=== PATIENT | female | born 1945 | race Caucasian/White ===

== ENCOUNTER → 2018-06-23 | Outpatient (CLI) | payer OTHER, MEDICAID | LOC: FIMAGING 06-03 15:16 | PROVIDERS: ATTEND Family Medicine | DX: Z12.31 Encounter for screening mammogram for malignant neoplasm of breast (principal) ==

== ENCOUNTER 2018-10-28 07:55 | Day surgery (SDC) | payer OTHER, MEDICAID ==
[2018-10-28] MEDS ORDERED: LR 1,000 ML IV ONE (08:10)
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
[2018-10-28] MEDS ORDERED: fentaNYL 100 MCG/2 ML INJ ONE (08:55)
[2018-10-28] MEDS ORDERED: PROPOFOL/EMULSION 500 MG/50 ML BOTTLE IV ONE (08:55)
--- NOTE | 2018-10-28 08:59 | PDGENHP ---
History & Physical Chief Complaint: dysphagia, colon screening History of Present Illness: dysphagia screening Pertinent Past, Social, Family History: tobacco - none. alcohol - none. Fhx - no colon cancer Relevant Physical Exam: A+Ox3. cta. S1S2. +BS soft, nt Cardiorespiratory Assessment: class II
[2018-10-28] MEDS ORDERED: NALOXONE HCL 0.4 MG/ML INJ IVP PRN (09:53)
--- NOTE | 2018-10-28 10:02 | POSTANESTH ---
Post Anesthetic Evaluation Cardiovascular Status: Normal, Stable Respiratory Status: Normal, Stable Level of Consciousness/Mental Status: Can Participate in Eval Pain Control: Adequate, Prn Tx Ordered Nausea/Vomiting Control: Adequate, Prn Tx Ordered Complications Possibly Related to Anesthesia: None Noted
[2018-10-28 10:38] VITALS: BP 156/80
--- NOTE | 2018-10-28 10:43 | GIREPORT ---
[facility] - Endoscopy Department Patient Name: Deirdre Pavon Procedure Date: 10/28/2018 8:27 AM Patient Type: Outpatient Attending MD/ ER Physician: Kai Reese MD Procedure: Colonoscopy Indications: Screening for colorectal malignant neoplasm Providers: Kai Reese MD Referring MD: Gilberto Erickson MD Medicines: Propofol per Anesthesia = IV general with spont resps Complications: No immediate complications. Estimated blood loss: Minimal. Description of Procedure: After obtaining informed consent, the scope was passed under direct vis ion. Throughout the procedure, the patient's blood pressure, pulse, and oxyg en saturations were monitored continuously. The Colonoscope with irrigatio n channel was introduced through the anus and advanced to the terminal il eum, with identification of the appendiceal orifice and IC valve. The colono scopy was performed without difficulty. The patient tolerated the procedure w ell. The quality of the bowel preparation was good. Findings: The digital rectal exam was normal. The terminal ileum appeared normal. A 23 mm polyp was found in the proximal ascending colon. The polyp was sessile. The polyp was removed with a piecemeal technique using a cold snare. Resection and retrieval were complete. Area was tattooed with an injection of 3 mL of Anna ink. Estimated blood loss was minimal. A 9 mm polyp was found in the rectum. The polyp was semi-pedunculated. The polyp was removed with a hot snare. Resection and retrieval were comple te. Estimated blood loss: none. The exam was otherwise without abnormality. Estimated Blood Loss: Estimated blood loss was minimal. Post Op Diagnosis: - The examined portion of the ileum was normal. - One 23 mm polyp in the proximal ascending colon, removed piecemeal us ing a cold snare. Resected and retrieved. Tattooed. - One 9 mm polyp in the rectum, removed with a hot snare. Resected and retrieved. - The examination was otherwise normal. Recommendation: - Await pathology results. - My office will call with the pathology result with 5-7 days. If you h ave not heard from my office by 12-14, do not assume the pathology is olivia l, please call [phone] to get the pathology results. - Repeat colonoscopy in 1 year for surveillance after piecemeal polypec elena. - Resume previous diet. - Patient has a contact number available for emergencies. The signs and symptoms of potential delayed complications were discussed with the pat ient. Return to normal activities tomorrow. Written discharge instructions we re provided to the patient. - Continue present medications. - Avoid Aspirin and NSAIDs for 7-10 days. - See EGD for other recommendations - Discharge patient to home (ambulatory). - Return to primary care physician as previously scheduled. - Thank you for allowing me to help in your patient's care. Do not hesi kee to call with any questions. Attending Participation: I personally performed the entire procedure. Mary Ann Coley M.D Kai Reese MD 10/28/2018 10:43:21 AM This report has been signed electronicallyMattteresa Reese MD Number of Addenda: 0 Note Initiated On: 10/28/2018 8:27 AM Total Procedure Duration Time 0 hours 23 minutes 15 seconds [email or web address]
--- NOTE | 2018-10-28 10:49 | GIREPORT ---
[facility] Surgical [facility] - Endoscopy Department Patient Name: Deirdre Pavon Procedure Date: 10/28/2018 8:15 AM Patient Type: Outpatient Attending MD/ ER Physician: Kai Reese MD Procedure: Upper GI endoscopy Indications: Dysphagia Providers: Kai Reese MD Referring MD: Gilberto Erickson MD Medicines: Propofol per Anesthesia = IV general with spont resps Complications: No immediate complications. Estimated blood loss: Minimal. Description of Procedure: After obtaining informed consent, the endoscope was passed under direct vision. Throughout the procedure, the patient's blood pressure, pulse, and oxygen saturations were monitored continuously. The Endoscope was intro duced through the mouth, and advanced to the third part of duodenum. The uppe r GI endoscopy was accomplished without difficulty. The patient tolerated th e procedure well. Findings: The upper third of the esophagus was normal. Biopsies were obtained fro m the proximal and distal esophagus with cold forceps for histology of suspec jacoby eosinophilic esophagitis. Estimated blood loss was minimal. Mucosal changes including longitudinal furrows and white plaques were f ound in the lower third of the esophagus. Biopsies were obtained from the proximal and distal esophagus with cold forceps for histology of suspec jacoby eosinophilic esophagitis. Estimated blood loss was minimal. One benign-appearing, intrinsic mild stenosis was found at the gastroesophageal junction. The stenosis was traversed. A TTS dilator wa s passed through the scope. Dilation with an 18-19-20 mm x 5.5 cm CRE bal loon dilator was performed to 20 mm. The dilation site was examined and show ed complete resolution of luminal narrowing. Estimated blood loss was mini mal. A hiatal hernia was present. Scattered moderate inflammation characterized by congestion (edema), erosions, erythema and friability was found in the gastric antrum. Biop sies were taken with a cold forceps for histology. Estimated blood loss was minimal. The examined duodenum was normal. The exam was otherwise without abnormality. Estimated Blood Loss: Estimated blood loss was minimal. Post Op Diagnosis: - Normal upper third of esophagus. Biopsied. - Esophageal mucosal changes suspicious for eosinophilic esophagitis. Biopsied. - Benign-appearing esophageal stenosis. Dilated. - Hiatal hernia. - Gastritis. Biopsied. - Normal examined duodenum. - The examination was otherwise normal. Recommendation: - Await pathology results. - My office will call with the pathology result with 5-7 days. If you h ave not heard from my office by 05-21, do not assume the pathology is olivia l, please call [phone] to get the pathology results. - Follow an antireflux regimen. - Use Protonix (pantoprazole) 40 mg PO daily for 2 months. Take 30-60 minutes before breakfast. 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 - Return to GI clinic in 3 months. - Return to primary care physician as previously scheduled. - Perform a colonoscopy today. - Thank you for allowing me to help in your patient's care. Do not hesi kee to call with any questions. Attending Participation: I personally performed the entire procedure. Mary Ann Coley M.D Kai Reese MD 10/28/2018 10:48:29 AM This report has been signed electronicallyMattteresa Reese MD Number of Addenda: 0 Note Initiated On: 10/28/2018 8:15 AM [email or web address]
== END 2018-10-28 11:00 | disposition home or self-care (01) ==
LOC: FSGY 07:55
PROVIDERS: ATTEND Internal Medicine Gastroenterology
DX: Z12.11 Encounter for screening for malignant neoplasm of colon (principal); R13.10 Dysphagia, unspecified; K29.70 Gastritis, unspecified, without bleeding; D12.5 Benign neoplasm of sigmoid colon; D12.2 Benign neoplasm of ascending colon; D12.8 Benign neoplasm of rectum
CPT/HCPCS: 43239; C1726; G0121; J2704; J3010